=== PATIENT | male | born 1980 | race Caucasian/White ===

== ENCOUNTER 2018-05-22 02:14 | Emergency (ER) | payer OTHER ==
[2018-05-22 02:57] VITALS: BP 114/65; PULSE 94; TEMP 97.4; BMI 41.1
== END 2018-05-22 06:10 | disposition left against medical advice (07) ==
LOC: JER 02:14
DX: R05 Cough (principal); R09.81 Nasal congestion
CPT/HCPCS: 99281-25

== ENCOUNTER 2018-07-07 18:48 | Inpatient (IN) | payer OTHER ==
[2018-07-07 20:55] VITALS: BMI 40.5
[2018-07-07] MEDS ORDERED: MELATONIN 5 MG TABLETS PO PRN (22:00)
--- NOTE | 2018-07-07 22:34 | HP ---
CIWA Score Nausea/Vomitin (vomiting x 2) Muscle Tremors: 3 Anxiety: 3 Agitation: 2 Paroxysmal Sweats: 1-Minimal Palms Moist Orientation: 1-Uncertain about Date Tacttile Disturbances: 1-Very Mild Itch/Numbness Auditory Disturbances: 0-None Visual Disturbances: 0-None Headache: 2-Mild CIWA-Ar Total Score: 16 - Admission Criteria [facility]ASAS Guidelines: Admission for Medically Managed Detox: Requires at least one of the followin. CIWA greater than 12 2. Seizures within the past 24 hours 3. Delirium tremens within the past 24 hours 4. Hallucinations within the past 24 hours 5. Acute intervention needed for co occurring medical disorder 6. Acute intervention needed for co occurring psychiatric disorder 7. Severe withdrawal that cannot be handled at a lower level of care (continued vomiting, continued diarrhea, abnormal vital signs) requiring intravenous medication and/or fluids 8. Admission ROS [facility] - [facility] Chief Complaint: Alcohol withdrawal symptoms Allergies/Adverse Reactions: Allergies Allergy/AdvReac Type Severity Reaction Status Date / Time chlorpromazine HCl Allergy Unknown Verified 07/07/18 19:52 [From [facility]] History of Present Illness: 37 years old male with 22 years of alcohol dependence is seeking admission to detox. Patient reports that this is first inpatient detoxification and first admission to [facility]. Patient has medical history of asthma, depression and anxiety. He reports suicide attempt in 2007, 2013 and denies suicidal ideation at this time. Patient urine toxicology was positive for methadone but he denies use and reports that he has never used methadone. He reports heroin dependence but his urine was negative for opiates. Exam Limitations: No Limitations - Ebola screening Have you traveled outside of the country in the last 21 days: No Have you had contact with anyone from an Ebola affected area: No Have you been sick,other than usual withdrawal symptoms: No Do you have a fever: No - Review of Systems Constitutional: Chills, Loss of Appetite, Malaise, Night Sweats, Changes in sleep EENT: reports: Nose Congestion, Sinus Pressure Respiratory: reports: No Symptoms reported Cardiac: reports: No Symptoms Reported GI: reports: Diarrhea (x 3), Poor Appetite, Poor Fluid Intake, Vomiting (x 2) : reports: No Symptoms Reported Musculoskeletal: reports: Muscle Pain, Neck Pain Integumentary: reports: Dryness, Flushing Neuro: reports: Tremors Hematology: reports: No Symptoms Reported Psychiatric: reports: Anxious, Depressed Other Systems: Reviewed and Negative Patient History - Patient Medical History Hx Anemia: No Hx Asthma: Yes (Albuterol inhaler) Hx Chronic Obstructive Pulmonary Disease (COPD): No Hx Cancer: No Hx Cardiac Disorders: No Hx Congestive Heart Failure: No Hx Hypertension: No Hx Hypercholesterolemia: No Hx Pacemaker: No HX Cerebrovascular Accident: No Hx Seizures: No Hx Dementia: No Hx Diabetes: No Hx Gastrointestinal Disorders: No Hx Liver Disease: No Hx Genitourinary Disorders: No Hx Sexually Transmitted Disorders: No Hx Renal Disease (ESRD): No Hx Thyroid Disease: No Hx Human Immunodeficiency Virus (HIV): No (Negative 2017) Hx Hepatitis C: No Hx Depression: Yes (Not on medicatiom) Hx Suicide Attempt: Yes ( Attempt in 2007, 2013 overdose. Denies suicidal ideation at this time) Hx Bipolar Disorder: Yes (non compliance) Hx Schizophrenia: Yes Other Medical History: Anxiety - Not on medication - Patient Surgical History Past Surgical History: Yes Hx Neurologic Surgery: No Hx Cataract Extraction: No Hx Cardiac Surgery: No Hx Lung Surgery: No Hx Breast Surgery: Yes (for bilateral gynecomastia at age of 15 years) Hx Breast Biopsy: No Hx Abdominal Surgery: No Hx Appendectomy: No Hx Cholecystectomy: No Hx Genitourinary Surgery: No Hx Section: No Hx Orthopedic Surgery: No Anesthesia Reaction: No - PPD History Previous Implant?: Yes Documented Results: Negative w/o proof Date: 12/30/12 PPD to be Administered?: Yes - Reproductive History Patient is a Female of Child Bearing Age (11 -55 yrs old): No (MALE) - Smoking Cessation Smoking history: Current every day smoker Have you smoked in the past 12 months: No Aproximately how many cigarettes per day: 10 If you are a former smoker, when did you quit?: doesn't want booklet Cigars Per Day: 4 Hx Chewing Tobacco Use: No Initiated information on smoking cessation: Yes 'Breaking Loose' booklet given: 07/07/18 - Substance & Tx. History Hx Alcohol Use: Yes Hx Substance Use: Yes Substance Use Type: Alcohol, Marijuana Hx Substance Use Treatment: No - Substances Abused Alcohol Route: Oral Frequency: Daily Amount used: VODKA - 1 PINT Age of first use: 15 Date of Last Use: 07/07/18 Marijuana/Hashish Route: Oral Frequency: Daily Amount used: $150 Age of first use: 12 Date of Last Use: 07/07/18 Family Disease History - Family Disease History Family Disease History: Other: Father (alcoholic and schizophrenia) Admission Physical Exam [facility] - Vital Signs Vital Signs: Vital Signs - 24 hr 07/07/18 20:51 Temperature 98.6 F Pulse Rate 110 H Respiratory 18 Rate Blood Pressure 121/82 - Physical General Appearance: Yes: Moderate Distress, Tremorous, Irritable, Sweating, Anxious HEENTM: Yes: Nasal Congestion Respiratory: Yes: Lungs Clear, Normal Breath Sounds, No Respiratory Distress Neck: Yes: Supple Breast: Yes: Breast Exam Deferred Cardiology: Yes: Tachycardia Abdominal: Yes: Normal Bowel Sounds Genitourinary: Yes: Within Normal Limits Back: Yes: Normal Inspection Musculoskeletal: Yes: Muscle Pain Extremities: Yes: Tremors Neurological: Yes: Within Normal Limits Integumentary: Yes: Dry, Warm Lymphatic: Yes: Within Normal Limits - Diagnostic (1) Asthma Current Visit: Yes Status: Chronic Qualifiers: Asthma severity: mild Asthma persistence: intermittent (2) Depression Current Visit: Yes Status: Chronic Qualifiers: Depression Type: unspecified Qualified Code(s): F32.9 - Major depressive disorder, single episode, unspecified (3) Anxiety Current Visit: Yes Status: Chronic (4) Nicotine dependence Current Visit: Yes Status: Chronic Qualifiers: Nicotine product type: cigarettes Substance use status: uncomplicated Qualified Code(s): F17.210 - Nicotine dependence, cigarettes, uncomplicated (5) Alcohol dependence with uncomplicated intoxication Current Visit: Yes Status: Chronic (6) Alcohol dependence Current Visit: Yes Status: Chronic Cleared for Admission [facility] - Detox or Rehab [facility] Level of Care: Medically Managed Detox Regimen/Protocol: Librium [facility] Breath Alcohol Content Breath Alcohol Content: 0 Urine Drug Screen - Results Drug Screen Negative: No Urine Drug Screen Results: THC-Marijuana, BZO-Benzodiazepines, MTD-Methadone
[2018-07-07] MEDS ORDERED: LOPERAMIDE HCL 2 MG CAPSULE PO PRN (22:47)
[2018-07-07] MEDS ORDERED: IBUPROFEN 400 MG TABLET (FP) PO PRN (22:47)
[2018-07-07] MEDS ORDERED: MAGNESIUM CITRATE 300 ML BOTTLE PO PRN (22:47)
[2018-07-07] MEDS ORDERED: ACETAMINOPHEN 325 MG TABLET (FP) PO PRN (22:47)
[2018-07-07] MEDS ORDERED: MENTHOL/PHENOL 1 EACH UD MM PRN (22:47)
[2018-07-07] MEDS ORDERED: guaiFENesin/D-METHORPHAN HB 10 ML UNIT-DOSE CUPS PO PRN (22:47)
[2018-07-07] MEDS ORDERED: NICOTINE POLACRILEX 2 MG GUM BC PRN (22:47)
[2018-07-07] MEDS ORDERED: P-EPHED 60MG/TRIPROLIDI 2.5MG TABLET PO PRN (22:47)
[2018-07-07] MEDS ORDERED: chlordiazePOXIDE HCL 25 MG CAPSULE PO PRN (22:47)
[2018-07-07] MEDS ORDERED: MAGNESIUM HYDROX 2400MG/30ML ORAL SUSPENSION 30 ML CUP PO PRN (22:47)
[2018-07-07] MEDS ORDERED: MAG HYDROX/AL HYDROX/SIMETH 30 ML UNIT-DOSE CUP PO PRN (22:47)
[2018-07-07] MEDS: chlordiazePOXIDE HCL 25 MG CAPSULE PO SCH (23:55)
[2018-07-08] MEDS: chlordiazePOXIDE HCL 25 MG CAPSULE PO SCH ×2 (05:26→10:11)
[2018-07-08 06:21] VITALS: BP 119/70; PULSE 95; TEMP 96.4
--- NOTE | 2018-07-08 09:54 | EKG ---
Test Reason : Blood Pressure : / mmHG Vent. Rate : 104 BPM Atrial Rate : 104 BPM P-R Int : 172 ms QRS Dur : 088 ms QT Int : 354 ms P-R-T Axes : 041 017 029 degrees QTc Int : 465 ms SINUS TACHYCARDIA OTHERWISE NORMAL ECG NO PREVIOUS ECGS AVAILABLE Confirmed by NAVARRO BURGOS MD ([id number]) on 07/08/2018 9:54:05 AM Referred By: Amarilys Couch Confirmed By:NAVARRO BURGOS MD
[2018-07-08] MEDS ORDERED: NICOTINE 14 MG/24 HOURS TOPICAL PATCH TD SCH (10:00)
[2018-07-08] MEDS ORDERED: PRENATAL VITAMINS W/ FOLIC ACID TABLET (FP) PO SCH (10:00)
[2018-07-08 10:03] LABS: HEMATOCRIT 37.9 % (35.4-49); HEMOGLOBIN 12.8 GM/dL (11.7-16.9); MCH 28.8 pg (25.7-33.7); MCHC 33.8 g/dl (32.0-35.9); MEAN CELL VOLUME 85.1 fl (80-96); MEAN PLT VOLUME 8.7 fl (7.5-11.1); PLATELET COUNT 222 K/MM3 (134-434); RBC 4.46 M/mm3 (4.00-5.60); RDW 14.2 % (11.9-15.9); WHITE BLOOD COUNT 9.2 K/mm3 (4.0-10.0)
[2018-07-08 11:00] LABS: ALBUMIN 3.3 g/dl (3.4-5.0); ALK PHOS 81 U/L (45-117); ANION GAP 7 MMOL/L (8-16); BILIRUBIN,TOTAL 0.1 mg/dL (0.2-1); BLOOD UREA NITROGEN 18 mg/dL (7-18); CALCIUM 9.1 mg/dL (8.5-10.1); CHLORIDE 104 mmol/L (98-107); CO2 29 mmol/L (21-32); GLUCOSE,RANDOM 149 mg/dL (74-106); POTASSIUM 4.1 mmol/L (3.5-5.1); SGOT/AST 15 U/L (15-37); SGPT/ALT 24 U/L (13-61); SODIUM 140 mmol/L (136-145); TOT PROT 6.5 g/dl (6.4-8.2)
--- NOTE | 2018-07-08 11:24 | DS ---
[facility] Detox Discharge Summary Admission Date: 07/07/18 Discharge Date: 07/08/18 - History Present History: Alcohol Dependence Additional Comments: 37 years old male admitted on 07/07/18 for alcohol withdrawal stabilization insists to leave the detox unit marketing underwriter compromise or modify detox regiment from librium to Valium patient refused offer supportive auxiliary management for alcohol withdrawal patient reject the offer offer none pharmacotherapeutic management for alcohol withdrawal patient insists to leave the detox strong recommend community self help support group Pertinent Past History: discuss negative consequences of alcohol misuse as well as avoidable injuries cigarette cessation due to asthma and overweight - Physical Exam Results Vital Signs: Vital Signs Temperature 96.4 F L 07/08/18 06:20 Pulse Rate 95 H 07/08/18 06:20 Respiratory Rate 18 07/08/18 06:20 Blood Pressure 119/70 07/08/18 06:20 O2 Sat by Pulse Oximetry (%) Pertinent Admission Physical Exam Findings: alcohol withdrawal sx Laboratory Last Values WBC 9.2 K/mm3 (4.0-10.0) 07/08/18 07:00 RBC 4.46 M/mm3 (4.00-5.60) 07/08/18 07:00 Hgb 12.8 GM/dL (11.7-16.9) 07/08/18 07:00 Hct 37.9 % (35.4-49) 07/08/18 07:00 MCV 85.1 fl (80-96) 07/08/18 07:00 MCH 28.8 pg (25.7-33.7) 07/08/18 07:00 MCHC 33.8 g/dl (32.0-35.9) 07/08/18 07:00 RDW 14.2 % (11.9-15.9) 07/08/18 07:00 Plt Count 222 K/MM3 (134-434) 07/08/18 07:00 MPV 8.7 fl (7.5-11.1) D 07/08/18 07:00 Sodium 140 mmol/L (136-145) 07/08/18 07:00 Potassium 4.1 mmol/L (3.5-5.1) 07/08/18 07:00 Chloride 104 mmol/L (98-107) 07/08/18 07:00 Carbon Dioxide 29 mmol/L (21-32) 07/08/18 07:00 Anion Gap 7 MMOL/L (8-16) L 07/08/18 07:00 BUN 18 mg/dL (7-18) 07/08/18 07:00 Creatinine 1.0 mg/dL (0.55-1.3) 07/08/18 07:00 Creat Clearance w eGFR > 60 (>60) 07/08/18 07:00 Random Glucose 149 mg/dL (74-106) H 07/08/18 07:00 Calcium 9.1 mg/dL (8.5-10.1) 07/08/18 07:00 Total Bilirubin 0.1 mg/dL (0.2-1) L 07/08/18 07:00 AST 15 U/L (15-37) 07/08/18 07:00 ALT 24 U/L (13-61) 07/08/18 07:00 Alkaline Phosphatase 81 U/L (45-117) 07/08/18 07:00 Total Protein 6.5 g/dl (6.4-8.2) 07/08/18 07:00 Albumin 3.3 g/dl (3.4-5.0) L 07/08/18 07:00 lab noted lower the sugar intake weight loss - Treatment Hospital Course: Detox Protocol Followed, Responded well Patient has Accepted a Rehab Referral to: 12 step community self help - Medication Discharge Medications: Ambulatory Orders Alprazolam [Xanax] 2 mg PO BID 08/07/15 Quetiapine Fumarate [Seroquel] 200 mg PO BID 08/07/15 Trazodone HCl 150 mg PO BID 08/07/15 - Diagnosis (1) Alcohol dependence with uncomplicated intoxication Current Visit: Yes Status: Acute (2) Asthma Current Visit: Yes Status: Chronic Qualifiers: Asthma severity: mild Asthma persistence: intermittent Asthma complication type: with status asthmaticus Qualified Code(s): J45.22 - Mild intermittent asthma with status asthmaticus (3) Nicotine dependence Current Visit: Yes Status: Acute Qualifiers: Nicotine product type: cigarettes Substance use status: in withdrawal Qualified Code(s): F17.213 - Nicotine dependence, cigarettes, with withdrawal - AMA Did Patient Leave Against Medical Advice: Yes
[2018-07-08] MEDS ORDERED: THIAMINE HCL 100 MG TABLET (FP) PO SCH (22:00)
[2018-07-08] MEDS ORDERED: chlordiazePOXIDE HCL 25 MG CAPSULE PO SCH (23:00)
[2018-07-09] MEDS ORDERED: chlordiazePOXIDE 5 MG CAPSULE PO SCH (23:00)
[2018-07-10] MEDS ORDERED: chlordiazePOXIDE HCL 10 MG CAPSULE PO SCH (23:00)
== END 2018-07-08 08:27 | disposition left against medical advice (07) | DRG 770 ==
LOC: YASAS 18:48 → Y3N 23:07
PROVIDERS: ADMIT Neuromusculoskeletal Medicine & OMM; ATTEND Neuromusculoskeletal Medicine & OMM
PROC: HZ2ZZZZ Detoxification Services for Substance Abuse Treatment (ICD-10-PCS; principal; 2018-07-07)
DX: F10.230 Alcohol dependence with withdrawal, uncomplicated (principal); F10.220 Alcohol dependence with intoxication, uncomplicated; F12.20 Cannabis dependence, uncomplicated; F17.213 Nicotine dependence, cigarettes, with withdrawal; F41.9 Anxiety disorder, unspecified; F32.9 Major depressive disorder, single episode, unspecified; R00.0 Tachycardia, unspecified; Z91.14 Patient's other noncompliance with medication regimen; Z91.5 Personal history of self-harm
CPT/HCPCS: 36415; 80053; 85027; 86593; 93005; 93010

== ENCOUNTER 2020-06-25 05:07 | Emergency (ER) | payer OTHER ==
[2020-06-25] MEDS ORDERED: ACETAMINOPHEN 325 MG TABLET (FP) PO ONE (05:45)
[2020-06-25 05:51] VITALS: BP 115/59; PULSE 92; TEMP 98.4; BMI 39.5
[2020-06-25] MEDS ORDERED: ACETAMINOPHEN 325 MG TABLET (FP) ONE (05:53)
== END 2020-06-25 08:30 | disposition left against medical advice (07) ==
LOC: JER 05:07
DX: S92.901A Unspecified fracture of right foot, initial encounter for closed fracture (principal)
CPT/HCPCS: 73610-TC-RT-FY; 73630-TC-RT-FY; 99284-25

== ENCOUNTER 2021-11-11 18:02 | Emergency (ER) | payer OTHER ==
[2021-11-11 18:19] VITALS: BP 122/82; PULSE 94; TEMP 98.8; BMI 42.2
[2021-11-11] MEDS ORDERED: KETOROLAC TROMETHAMINE 30 MG/1 ML VIAL IM ONE (19:32)
[2021-11-11] MEDS ORDERED: KETOROLAC TROMETHAMINE 30 MG/1 ML VIAL ONE (19:37)
== END 2021-11-11 20:01 | disposition home or self-care (01) ==
LOC: JER 18:02 → JERFT 18:02
PROC: 3E023GC Introduction of Other Therapeutic Substance into Muscle, Percutaneous Approach (ICD-10-PCS; principal; 2021-11-11)
DX: S93.491A Sprain of other ligament of right ankle, initial encounter (principal); W01.0XXA Fall on same level from slipping, tripping and stumbling without subsequent striking against object, initial encounter
CPT/HCPCS: 73610-TC-RT-FY; 73630-TC-RT-FY; 99284-25